=== PATIENT | female | born 1945 | race Native Hawaiian/Other Pacific Islander ===

== ENCOUNTER 2017-05-06 11:30 | Emergency (ER) | payer OTHER, BC ==
[~2017-05-06] VITALS: Ht 160 cm; Wt 70.3 kg
[~2017-05-06 11:30] MED LIST: ALLEGRA-D 2424 HOUR PO; FLUT0.05 NAS; GLIMEPIRIDE1 MG PO; METO50TA63 PO
[2017-05-06 11:50] VITALS: TEMP 98
[2017-05-06 12:04] LABS: PLATELET COUNT 276 K/uL (152-353)
[2017-05-06 12:12] LABS: POTASSIUM 4.1 mmol/L (3.6-5.2)
[2017-05-06 12:36] VITALS: BP 179/67
== END 2017-05-06 12:36 | disposition home or self-care (01) ==
LOC: ED 11:30
DX: D50.8 Other iron deficiency anemias (principal)
CPT/HCPCS: 80053; 85027; 96372; 99283; J3420

== ENCOUNTER 2017-05-15 18:44 | Emergency (ER) | payer OTHER, BC ==
[~2017-05-15] VITALS: Ht 160 cm; Wt 70.3 kg
[2017-05-15 19:33] LABS: PLATELET COUNT 294 K/uL (152-353)
[2017-05-15 19:39] LABS: POTASSIUM 4.3 mmol/L (3.6-5.2)
[2017-05-15 20:04] LABS: PARTIAL THROMBOPLASTIN TIME 26.4 SECONDS (24.5-33.6)
[2017-05-16 01:30] VITALS: BP 181/96; TEMP 97.8
== END 2017-05-16 01:30 | disposition short-term general hospital (02) ==
LOC: ED 18:44
PROVIDERS: Specialist
DX: R07.89 Other chest pain (principal)
CPT/HCPCS: 36415; 80053; 82550; 84484; 85027; 85610; 85730; 93005; 96365; 96375; 99285; J2060; J2270; J2405; J3490

== ENCOUNTER 2017-05-16 01:30 | Outpatient (CLI) | payer OTHER, BC | END 2017-05-16 02:55 | disposition short-term general hospital (02) | LOC: AMB 01:30 | DX: R07.89 Other chest pain (principal) | CPT/HCPCS: A0425; A0427 ==

== ENCOUNTER 2017-05-31 15:02 | Outpatient (CLI) | payer OTHER, BC | END 2017-05-31 19:07 | disposition home or self-care (01) | LOC: LABW 15:02 | DX: Z79.01 Long term (current) use of anticoagulants (principal); I48.1 Persistent atrial fibrillation; Z51.81 Encounter for therapeutic drug level monitoring | CPT/HCPCS: 36415; 85610 ==

== ENCOUNTER 2018-10-08 12:35 | Emergency (ER) | payer OTHER, BC ==
[~2018-10-08] VITALS: Ht 160 cm; Wt 70.8 kg
[2018-10-08 12:45] VITALS: TEMP 97.3
[2018-10-08 15:12] VITALS: BP 132/68
== END 2018-10-08 15:12 | disposition home or self-care (01) ==
LOC: ED 12:35
DX: S90.562A Insect bite (nonvenomous), left ankle, initial encounter (principal); W57.XXXA Bitten or stung by nonvenomous insect and other nonvenomous arthropods, initial encounter; Y92.89 Other specified places as the place of occurrence of the external cause
CPT/HCPCS: 99282

== ENCOUNTER 2018-10-15 05:58 | Emergency (ER) | payer OTHER, BC ==
[~2018-10-15] VITALS: Ht 160 cm; Wt 73.5 kg
[2018-10-15 07:17] LABS: PLATELET COUNT 226 K/uL (152-353)
[2018-10-15 07:22] LABS: POTASSIUM 4.2 mmol/L (3.6-5.2); SODIUM 130 mmol/L (136-145)
[2018-10-15 08:14] VITALS: BP 174/79; TEMP 97.9
== END 2018-10-15 08:20 | disposition home or self-care (01) ==
LOC: ED 05:58
PROVIDERS: Family Medicine
DX: M54.2 Cervicalgia (principal); M79.602 Pain in left arm
CPT/HCPCS: 36415; 80053; 81000; 82550; 84484; 85027; 93005; 99283

== ENCOUNTER 2020-09-15 22:56 | Emergency (ER) | payer BC ==
[~2020-09-15] VITALS: Ht 160 cm; Wt 63.5 kg
[2020-09-15] MEDS ORDERED: AMLO2.5T PO (23:16)
[2020-09-15 23:52] LABS: PLATELET COUNT 256 K/uL (152-353)
[2020-09-15 23:54] LABS: POTASSIUM 3.8 mmol/L (3.6-5.2); SODIUM 128 mmol/L (136-145)
[2020-09-16 02:35] VITALS: BP 157/82; TEMP 98.8
== END 2020-09-16 02:36 | disposition home or self-care (01) ==
LOC: ED 22:56
PROVIDERS: Family Medicine
DX: I10 Essential (primary) hypertension (principal); E87.1 Hypo-osmolality and hyponatremia; J06.9 Acute upper respiratory infection, unspecified
CPT/HCPCS: 36415; 80053; 81000; 82550; 84484; 85027; 93005; 96360; 99284